=== PATIENT | male | born 1950 | race Caucasian/White ===

== ENCOUNTER 2020-06-30 15:48 | Emergency (ER) | payer MEDICARE, OTHER ==
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
[2020-06-30] MEDS ORDERED: Diphtheria,Pertussis(Acell),Tetanus Vaccine 0.5 ML Syringe IM ONE (16:20)
[2020-06-30] MEDS ORDERED: Lactated Ringers 1,000 ML IV ONE ×2 (16:20→17:06)
[2020-06-30] MEDS ORDERED: Sodium Chloride 0.9% 10 ML Syringe FLUSH PRN (16:20)
[2020-06-30] MEDS ORDERED: Ketorolac 30 MG/ML SDV IVPUSH ONE (16:55)
[2020-06-30] MEDS ORDERED: Silver Sulfadiazine 1% Crm 400 GM Jar TOP ONE (16:55)
[2020-06-30] MEDS ORDERED: HYDROmorphone 0.5 MG/0.5 ML Syringe IVPUSH ONE (16:56)
[2020-06-30] MEDS ORDERED: Bacitracin Oint 15 GM Tube TOP ONE (17:00)
[2020-06-30] MEDS ORDERED: Lidocaine 2% Jelly 10 ML Urojet MUCMEM ONE (17:01)
== END 2020-06-30 18:55 | disposition home or self-care (01) ==
LOC: JD.ED 15:48
DX: T20.20XA Burn of second degree of head, face, and neck, unspecified site, initial encounter (principal); T23.202A Burn of second degree of left hand, unspecified site, initial encounter; T23.272A Burn of second degree of left wrist, initial encounter; T23.201A Burn of second degree of right hand, unspecified site, initial encounter; T23.271A Burn of second degree of right wrist, initial encounter; T23.242A Burn of second degree of multiple left fingers (nail), including thumb, initial encounter; T23.241A Burn of second degree of multiple right fingers (nail), including thumb, initial encounter; Z23 Encounter for immunization; X19.XXXA Contact with other heat and hot substances, initial encounter; Y93.G3 Activity, cooking and baking
CPT/HCPCS: 16020; 90471; 90715; 96374; 96375; 99283; A9270; J1170; J1885; J7120

== ENCOUNTER 2024-07-25 13:31 | Emergency (ER) | payer MEDICARE, OTHER | END 2024-07-25 15:02 | disposition home or self-care (01) | LOC: JD.ED 13:31 | DX: M54.42 Lumbago with sciatica, left side (principal); Z79.899 Other long term (current) drug therapy | CPT/HCPCS: 99283 ==